=== PATIENT | female | born 1995 | race Caucasian/White ===

== ENCOUNTER 2022-12-25 02:01 | Emergency (ER) | payer BC ==
[~2022-12-25] VITALS: Ht 175.3 cm; Wt 99.8 kg
[2022-12-25 02:18] VITALS: BP_SYST 184
[2022-12-25] MEDS ORDERED: ENALAPRILAT DIHYDRATE 1.25 MG/ML VIAL IVP ONE (02:30)
[2022-12-25 02:56] LABS: CREATININE 0.95 mg/dL (0.55-1.30)
[2022-12-25 03:01] LABS: ALBUMIN 3.8 g/dL (3.4-4.8); TOTAL BILIRUBIN 0.4 mg/dL (0.0-1.0)
[2022-12-25 03:04] LABS: BASOPHILS % (AUTO) 0.3 % (0.0-2.0); EOSINOPHILS # (AUTO) 0.2 K/uL (0.0-0.4); HEMOGLOBIN 13.9 g/dL (12.0-16.0); LYMPHOCYTES # (AUTO) 2.1 K/uL (1.0-5.5); LYMPHOCYTES % (AUTO) 21.4 % (20.5-51.5); MEAN CORPUSCULAR HEMOGLOBIN 28 pg (27-31); MEAN CORPUSCULAR HGB CONC 34 % (32-36); MEAN CORPUSCULAR VOLUME 83 fL (79.0-98.0); MONOCYTES # (AUTO) 0.4 K/uL (0.0-1.0); MONOCYTES % (AUTO) 4.4 % (1.7-9.3); NEUTROPHILS # (AUTO) 7.1 K/uL (1.8-7.7); NEUTROPHILS % (AUTO) 71.9 % (40.0-70.0); PLATELET COUNT (AUTO) 446 K/uL (130-430); RED BLOOD CELL COUNT(AUTO) 4.93 MIL/uL (4.2-6.2); RED CELL DISTRIBUTION WIDTH 14.2 % (9.0-15.0); WHITE BLOOD COUNT (AUTO) 9.8 K/uL (4.8-10.8)
[2022-12-25 03:40] VITALS: BP_SYST 135
[2022-12-25] MEDS ORDERED: LISI20TA30 PO (03:44)
[2022-12-25 04:01] LABS: BILIRUBIN,URINE NEGATIVE (NEGATIVE); BLOOD, URINE NEGATIVE (NEGATIVE); COLOR,URINE YELLOW (YELLOW); GLUCOSE,URINE NEGATIVE (NEGATIVE); KETONES,URINE NEGATIVE (NEGATIVE); LEUKOCYTE ESTERASE ,URINE 2+ (NEGATIVE); NITRITE, URINE NEGATIVE (NEGATIVE); PH,URINE 7.5 (5.0-8.0); PROTEIN URINE NEGATIVE (NEGATIVE); UROBILINOGEN,URINE 0.2 (0.2-1.0)
[2022-12-25 04:17] LABS: CLARITY/URINE SLIGHTLY CLOUDY (CLEAR)
[2022-12-25 04:19] LABS: BACTERIA,URINE MODERATE /HPF (None Seen); RBC,URINE 0-3 /HPF (0-3); WBC,URINE 20-50 /HPF (0-3)
[2022-12-25] MEDS ORDERED: cefTRIAXone 1 GM IVPB PREMIX 50 ML IV ONE (04:30)
[2022-12-25] MEDS ORDERED: NITR-85 PO (05:20)
[2022-12-25] MEDS ORDERED: SYN50 PO (05:25)
== END 2022-12-25 05:32 | disposition home or self-care (01) ==
LOC: SED 02:01
DX: N39.0 Urinary tract infection, site not specified (principal); I10 Essential (primary) hypertension; E03.9 Hypothyroidism, unspecified; R33.9 Retention of urine, unspecified; R51.9 Headache, unspecified; Z79.899 Other long term (current) drug therapy
CPT/HCPCS: 99284; 96365; 96375; 80053; 81000; 84443; 85025; 87040; 87086; 36415; J0696

== ENCOUNTER 2024-02-16 20:22 | Emergency (ER) | payer BC ==
[~2024-02-16] VITALS: Ht 175.3 cm; Wt 90.7 kg
[~2024-02-16 20:22] MED LIST: HYDR-3917 PO; IBUP-1969 PO; LISI20TA30 PO; NITR-85 PO; SYN50 PO
[2024-02-16 20:32] VITALS: BP_SYST 169; PULSE 87; RESP 20; TEMP 98; O2SAT 96
[2024-02-16] MEDS: DIPHTH,PERTUSS(ACELL),TET VAC 0.5 ML VIAL (Tdap) I.M. ONE (20:57)
[2024-02-16] MEDS: BACITRACIN 1 GM OINT TP ONE (20:57)
[2024-02-16] MEDS: LIDOCAINE 1% 10 MG/ML, 20 ML MDV INJ ONE (20:57)
[2024-02-16 21:01] VITALS: BP_SYST 169; PULSE 87; RESP 20; TEMP 98; O2SAT 96
== END 2024-02-16 21:01 | disposition home or self-care (01) ==
LOC: SED 20:22
DX: S61.307A Unspecified open wound of left little finger with damage to nail, initial encounter (principal); Z23 Encounter for immunization; Z79.899 Other long term (current) drug therapy; Z79.2 Long term (current) use of antibiotics; W22.03XA Walked into furniture, initial encounter; Y93.89 Activity, other specified; Y92.89 Other specified places as the place of occurrence of the external cause; Y99.8 Other external cause status
CPT/HCPCS: 90715; 99284